=== PATIENT | female | born 1965 | race Two or more races ===

== ENCOUNTER 2018-07-27 23:59 | Emergency (ER) | payer OTHER ==
[~2018-07-27] VITALS: Ht 152.4 cm; Wt 54.4 kg
[~2018-07-27 23:59] MED LIST: REGLAN PO; XANAX1 MG PO; ZANTAC150 M3 PO; [UNRECOGNIZED DRUG - OTHER] PO
== END 2018-07-28 13:05 | disposition home or self-care (01) ==
LOC: ER 23:59
DX: K29.60 Other gastritis without bleeding (principal); E86.0 Dehydration